=== PATIENT | male | born 1945 | race Caucasian/White ===

== ENCOUNTER 2020-10-11 07:30 | Day surgery (SDC) | payer OTHER ==
[2020-10-06 09:40] LABS: Absolute Lymphocytes (CBC) 1.8 K/uL (0.7-4.9); Basophils % 0.7 % (0-1.3); Hematocrit 48.3 % (39.6-49.0); Lymphocytes % 29.9 % (15.3-44.8); MPV 7.7 fL (7.6-11.3); RBC Red Blood Cell Count 5.18 M/uL (4.33-5.43)
[2020-10-06 10:44] LABS: Potassium 4.3 mmol/L (3.5-5.1)
[2020-10-11] MEDS ORDERED: NA CHLORIDE 0.9% 1,000 ML ONE (07:52)
[2020-10-11] MEDS: CEFAZOLIN/SWI 1gm 1 GM/10 ML SYR ONE ×3 (08:21→08:55)
[2020-10-11] MEDS ORDERED: LIDOCAINE 1% MPF 5 ML VIAL ONE (08:41)
[2020-10-11] MEDS ORDERED: FENTANYL CITR 100 MCG/2 ML ONE ×2 (08:41→09:49)
[2020-10-11] MEDS ORDERED: propofoL 200 MG/20 ML VIAL IV ONE (08:41)
[2020-10-11] MEDS ORDERED: ROCURONIUM 50 MG/5 ML VIAL IV ONE (08:41)
[2020-10-11] MEDS ORDERED: EPHEDRINE SULF 50 MG/ML VIAL ONE (09:21)
[2020-10-11] MEDS ORDERED: NS 0.9% VIAL 10 ML ONE (09:21)
[2020-10-11] MEDS ORDERED: ONDANSETRON 4 MG/2 ML VIAL ONE (09:48)
[2020-10-11] MEDS ORDERED: NEOSTIGMINE 1 MG/ML -5 ML ONE (10:52)
[2020-10-11] MEDS ORDERED: GLYCOPYRROLATE 0.2 MG/ML SYR ONE (10:52)
[2020-10-11] MEDS: HYDROMORPHONE HCL 2 MG/ML inj ONE ×4 (11:35→11:50)
[2020-10-11] MEDS: HYDROMORPHONE HCL 1 MG/ML INJ ONE ×2 (11:55→12:00)
--- NOTE | 2020-10-11 11:55 | OP ---
Date of Procedure: 10/11/2020 Surgeon: Douglas Lombardi MD Asp Web Developer: JAMIR Hemphill. Preoperative Diagnoses: Umbilical hernia, incarcerated right inguinal hernia and left inguinal herni a. Postoperative Diagnoses: Umbilical hernia, incarcerated right inguinal hernia and left inguinal eleazra ia. Procedures Performed: Laparoscopic repair of umbilical hernia, repair of incarcerated right inguinal hernia, repair of left inguinal hernia. Estimated Blood Loss: Minimal. Specimen: Hernia sac and cord lipoma. Findings: As above. Anesthesia: General. Complications: None. The patient tolerated the procedure in stable condition, taken to Recovery in good general condition. Operative Note: The patient was brought to the OR and placed in supine position. Generous anesthesi a was begun. The patient was prepped and draped in usual sterile fashion. Marcaine 0.5% was infiltr ated locally. A 15-blade was used to make a 1 cm left upper quadrant incision. Subcutaneous tissue was divided. Fascia was identified and divided. #1 Vicryl stay suture was placed. Peritoneal cavit y was entered with blunt dissection. A 12-mm trocar was placed into the peritoneal cavity under dire ct vision. Pneumoperitoneum was established. A 5 mm trocar was placed in the left lower quadrant. Laparoscopy revealed extensive omental adhesions to the umbilicus and right lower quadrant region whi ch were taken with the LigaSure. Bleeding was controlled. There was no evidence of bowel involvemen t. There was omentum inside the hernia sac. A 3 cm incision was made at the periumbilical region. S ubcutaneous tissue was divided. Hernia sac was identified and excised down through the fascial edges . Good fascial edges were obtained, approximately 2.5 cm in diameter. Hernia sac and contents were excised, sent to pathology and then a Ventralex large mesh was placed and the fascia was closed prima rily with #1 PDS and then pneumoperitoneum was re-established and complete coverage of the hernia def ect was accomplished and a Pro tacker was used to secure the mesh to the peritoneal surface. Subsequ ently, all trocars were removed under direct vision. Stay sutures were tied to each other to reappro ximate the fascial defect. Subcutaneous wounds were irrigated. Bleeding was controlled with cautery . A 3-0 chromic was used to approximate subcutaneous tissues and close the skin. Sterile dressing w as applied. Then, the right inguinal hernia. A 4 cm incision was made between the pubic tubercle, a nd the anterior iliac superior spine. Subcutaneous tissue was divided. Maulik fascia was identified and divided. Aponeurosis was very attenuated. Large indirect sac was present bulging through the w ound itself with omentum present. The sac was opened. Omentum was reduced. Hernia sac was excised. Marlex mesh plug was placed, 1 large size, 1 medium sized as the defect was fairly large and I want ed to do a tension-free repair on this patient. Subsequently, an Onlay mesh was placed in the pubic tubercle inferiorly to the shelving edge, laterally to each other and superior to the conjoined tendo n. Cord structures and ilioinguinal nerve were placed back in anatomical location. Maulik fascia wa s closed with 0 chromic and skin was closed with 3-0 chromic. Exact same operation with similar find ings except the omental fat was not incarcerated and was excised that was present and it was fairly s mall with the hernia sac and exact same repair was done on the left inguinal hernia. Subsequently, s terile dressing was applied. The patient was awakened and taken to Recovery in good general conditio n. Discharge Note: The patient will go to Day Surgery and home when stable. Disposition: Home. Condition: Stable. Discharge Instructions: Resume home meds and diet. Activity as tolerated. No heavy lifting. Remov e outer dressing in 2 days. Shower. Keep wound clean and dry. Keep Steri-Strips on at all times. Follow up in my office in 1 week. Call for appointment. Tylenol No.4 one tablet p.o. q.4 p.r.n. pain. Ice pack, scrotal support, abdominal binder, incentive spirometry a s ordered. /MODL Voice ID: [id number] Report ID: [id number]
[2020-10-11] MEDS ORDERED: HYDROCODONE/APAP 7.5/325 MG TAB ONE (13:17)
[2020-10-11 15:56] VITALS: TEMP 97.4; O2SAT 95
[2020-10-11] MEDS ORDERED: TAMSULOSIN 0.4 MG SR CAP ONE (16:35)
[2020-10-11 17:16] VITALS: BP 118/60
== END 2020-10-11 17:19 | disposition home or self-care (01) ==
LOC: OR 07:30
PROVIDERS: ATTEND Surgery
PROC: 0WUF4JZ Supplement Abdominal Wall with Synthetic Substitute, Percutaneous Endoscopic Approach (ICD-10-PCS; 2020-10-11)
PROC: 0YUA4JZ Supplement Bilateral Inguinal Region with Synthetic Substitute, Percutaneous Endoscopic Approach (ICD-10-PCS; principal; 2020-10-11 08:30)
DX: K42.9 Umbilical hernia without obstruction or gangrene (principal); K40.00 Bilateral inguinal hernia, with obstruction, without gangrene, not specified as recurrent; Z20.822 Contact with and (suspected) exposure to COVID-19; Z88.1 Allergy status to other antibiotic agents
CPT/HCPCS: 85025; 80048; 36415; 82947 ×2; 88302; 49650; 49652; U0002; J2704; J1170 ×2; J3010 ×2; J2710; J0690; J7030; J2405

== ENCOUNTER 2023-09-06 07:30 | Day surgery (SDC) | payer OTHER ==
[2023-09-05 11:22] LABS: Absolute Lymphocytes (CBC) 1.4 K/uL (0.7-4.9); Hematocrit 49.4 % (39.6-49.0); Lymphocytes % 15.1 % (15.3-44.8); MCV 96.2 fL (80-100); MPV 7.3 fL (7.6-11.3); Platelets 256 thou/uL (152-406); RBC Red Blood Cell Count 5.14 M/uL (4.33-5.43)
[2023-09-05 11:25] LABS: Protime INR 1.01
[2023-09-05 11:42] LABS: Potassium 4.2 mEq/L (3.5-5.1)
[2023-09-05 12:13] LABS: Blood Morphology Comment NOT SEEN (NOT SEEN); Platelet Estimate ADEQ; White Blood Cell Scan OK (OK)
--- NOTE | 2023-09-05 13:02 | RAD REPORT ---
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 Hypertension COMPARISON: Chest Pa And Lat (2 Views) dated 06/17/2018; Chest Pa And Lat (2 Views) dated 01/15/2018; Chest Pa And Lat (2 Views) dated 12/22/2015; ABDOMEN 1 VIEW KUB dated 05/20/2015 TECHNIQUE: PA and lateral views of the chest were obtained. FINDINGS: The lungs are clear. Heart size is normal and central vasculature is within normal limits. No pleural effusion or pneumothorax seen. No acute bony finding noted. IMPRESSION: No acute cardiopulmonary process.
[2023-09-06] MEDS ORDERED: NA CHLORIDE 0.9% 500 ML ONE (08:11)
[2023-09-06] MEDS ORDERED: ATROPINE SULF 1 MG/10 ML SYR IV ONE (08:52)
[2023-09-06] MEDS ORDERED: HEPA 1000U/500MLS 2,000 UNIT/1,000 ML BAG IV ONE (08:52)
[2023-09-06] MEDS ORDERED: LIDOCAINE 1% 20 ML MDV ONE (08:52)
[2023-09-06] MEDS ORDERED: FENTANYL CITR 100 MCG/2 ML ONE (08:52)
[2023-09-06] MEDS ORDERED: MIDAZOLAM HCL 2 MG/2 ML INJ ONE (08:52)
[2023-09-06 13:19] VITALS: TEMP 76
--- NOTE | 2023-09-06 14:41 | EKG ---
Test Date: 2023-09-05 Test Time: 12:06:01 Oxidation Engineer: MAHENDRA MEASUREMENT RESULTS: Intervals: Rate: 103 MS: 172 QRSD: 78 QT: 326 QTc: 427 [place]: P: 45 MS: 172 QRS: 39 T: 82 INTERPRETIVE STATEMENTS: Sinus tachycardia Otherwise normal ECG Compared to ECG 01/27/2013 11:54:16 Sinus rhythm no longer present Electronically Signed On 09-06-23 14:39:57 HOP FARMER by Yinka Comer
[2023-09-06 15:31] VITALS: BP 136/68; O2SAT 94
--- NOTE | 2023-09-07 00:59 | OP ---
Date of Procedure: 09/06/2023 Surgeon: AYANNA KAN Procedure Performed: Bilateral selective carotid angiogram. Indication: Carotid stenosis. Access: Right femoral artery 4-[place], closed with manual pressure. Complications: None. Bleeding: Less than 20 mL. Anesthesia: Total sedation time was 30 minutes. Description Of Procedure: After risks, benefits, and alternatives were explained, the patient agreed to procedure and signed informed consent. The patient was brought into the cardiac catheterization laboratory, prepped and draped in usual sterile fashion. Then, I accessed right femoral artery using micropuncture kit, ultrasound guidance, and fluoroscopy, placed 4-[place] pinnacle sheath, and took a 4-[place] 3DRC catheter to engage the right common carotid, took standard views and then the left com mon carotid, took standard views, and then removed the femoral sheath and manual pressure was used fo r closure with good hemostasis. Findings: 1.Right common carotid is normal. 2.Right internal carotid has proximal 40% to 50% and mid 50% stenosis. 3.Left common carotid is normal. Left internal carotid has proximal 80% to 90% ulcerative plaque. Conclusion: Severe left internal carotid artery stenosis and moderate right internal carotid artery stenosis. Plan: Refer to CT Surgery for left endarterectomy. SR/MODL Voice ID: [id number] Report ID: [id number]
== END 2023-09-06 13:25 | disposition home or self-care (01) ==
LOC: PRE 07:30 → CCL 13:25
PROVIDERS: ATTEND Internal Medicine
DX: I65.23 Occlusion and stenosis of bilateral carotid arteries (principal); I70.213 Atherosclerosis of native arteries of extremities with intermittent claudication, bilateral legs; I10 Essential (primary) hypertension; E78.2 Mixed hyperlipidemia; E11.9 Type 2 diabetes mellitus without complications; R06.02 Shortness of breath; Z79.82 Long term (current) use of aspirin; Z79.84 Long term (current) use of oral hypoglycemic drugs; Z79.899 Other long term (current) drug therapy
CPT/HCPCS: 93005; 85025; 80048; 36415; 83721; 85610; 82947; 85730; 71046; 36222 ×2; 76937; C1893; J2001; J2250; J3010; J7040; 36215; 99152; 99153; J0461